=== PATIENT | female | born 1970 | race Caucasian/White ===

== ENCOUNTER → 2020-08-03 | Outpatient (CLI) | payer OTHER ==
[~2020-08-03] MED LIST: Alpha Lipoic A100 MG; Aspirin EC81 MG PO; Calcium Magnes1 EACH; DHEA; FISH OIL 1,0001 EAC1 PO; FISH1000; IRON 100 PLUS1 EACH; Minocycline HC100 M1 PO; Multiple Vitam1 EACH PO; VITAMIN C500 MG PO; VITAMIN D35000 UNIT PO
[2020-08-06 15:11] LABS: HPV 16 Negative (Negative); HPV 18 Negative (Negative); HPV OTHER HR TYPES Negative (Negative)
== END | disposition home or self-care (01) ==
LOC: LAB 15:27
PROVIDERS: Advanced Practice Midwife
DX: Z01.419 Encounter for gynecological examination (general) (routine) without abnormal findings (principal)
CPT/HCPCS: 87624; G0123

== ENCOUNTER 2023-10-11 09:54 | Day surgery (SDC) | payer OTHER ==
[~2023-10-11] VITALS: Ht 162.6 cm; Wt 77.0 kg
[~2023-10-11 09:54] MED LIST changes: +ALPHA LIPOIC ACID PO; +Co Q-1030 MG PO; +DHEA 10 MG TAB1 EAC1 PO; +Lactated Ringer's 1,000 ML IV ONE; +MINOCYCLINE HC100 M2 PO; -Minocycline HC100 M1 PO; +OMEGA-3 FISH O1 EAC6 PO; +OMEP20ER PO; +TELM40 PO; +VITAMIN D5000 UNIT PO; +propofoL 50 ML IV ONE
[2023-10-11] MEDS ORDERED: Lactated Ringer's 1,000 ML IV ONE (11:24)
[2023-10-11 12:38] VITALS: BP 131/84
== END 2023-10-11 12:37 | disposition home or self-care (01) ==
LOC: ORSCSDS 09:54
PROVIDERS: Surgery
PROC: 0DJD8ZZ Inspection of Lower Intestinal Tract, Via Natural or Artificial Opening Endoscopic (ICD-10-PCS; principal; 2023-10-11 11:15)
DX: Z12.11 Encounter for screening for malignant neoplasm of colon (principal); Z86.010 Personal history of colon polyps; Z80.0 Family history of malignant neoplasm of digestive organs; K57.30 Diverticulosis of large intestine without perforation or abscess without bleeding; Z79.899 Other long term (current) drug therapy
CPT/HCPCS: J2704; J7120